=== PATIENT | female | born 1960 | race Caucasian/White ===

== ENCOUNTER 2019-06-22 14:21 | Outpatient (RCR) | payer BC, SELFPAY ==
[2019-06-22 15:30] LABS: Basophils % 0.5 %; Eosinophils # 0.2 10^3/uL (0.0-0.8); Eosinophils % 2.8 %; Hematocrit 42.7 % (37.0-47.0); Hemoglobin 13.3 g/dL (11.5-15.3); Lymphocytes % 16.4 %; Mean Corpuscular HGB Conc 31.1 g/dL (30.0-36.0); Mean Corpuscular Hemoglobin 29.3 pg (28.0-34.0); Mean Corpuscular Volume 94.1 fL (81-99); Mean Platelet Volume 9.7 fL (7.4-10.4); Monocytes # 0.3 10^3/uL (0.2-0.9); Monocytes % 5.7 %; Neutrophils # 4.5 10^3/uL (1.8-7.7); Neutrophils % 74.3 %; Nucleated Red Blood Cells % 0 %; Platelet Count 233 10^3/cmm (130-400); Red Blood Count 4.54 10^6/uL (4.1-5.3); Red Cell Distribution Width 12.5 % (12.1-15.1)
[2019-06-22 17:03] LABS: Erythrocyte Sedimentation Rate 10 mm/hr (0-15)
[2019-06-22 19:21] LABS: Alanine Aminotransferase 17 U/L (0-33); Albumin Level 4.4 g/dL (3.5-5.2); Alkaline Phosphatase 72 IU/L (35-105); Anion Gap 18.2 (5-19); Aspartate Amino Transferase 19 U/L (0-32); Blood Urea Nitrogen 13 mg/dL (8-23); Calcium 9.9 mg/dL (8.5-10.5); Carbon Dioxide 24 mmol/L (22-29); Chloride 103 mmol/L (98-107); Globulin 2.8 g/dL (1.3-4.6); Glomerular Filtration Rate 72.9 mL/min (90-130); Glucose 129 mg/dL (65-115); Lactate Dehydrogenase 211 U/L (135-214); Potassium 4.2 mmol/L (3.5-5.1); Sodium 141 mmol/L (136-145); Total Bilirubin 0.4 mg/dL (0.15-1.2); Total Protein 7.2 g/dL (6.6-8.7)
[2019-06-22 20:26] LABS: C Reactive Protein 1.2 mg/L (0.0-4.9)
[2019-06-28 15:30] LABS: P190 BCR ALB1 Not Detected; P210 BCR ALB1 Not Detected; Prior Results See Report
== END 2019-06-26 23:59 | disposition home or self-care (01) ==
LOC: ONCMED 14:21
PROVIDERS: Family Provider Nurse Practitioner Family; PCP Nurse Practitioner Family; Visit Provider Internal Medicine Medical Oncology
DX: C92.10 Chronic myeloid leukemia, BCR/ABL-positive, not having achieved remission (principal)
CPT/HCPCS: 36415; 80053; 81206; 83615; 85025; 85651; 86140

== ENCOUNTER 2019-06-30 05:55 | Outpatient (RCR) | payer BC, SELFPAY ==
--- NOTE | 2019-07-02 14:52 | ONC FU_ITS ---
Dr. Louis Patient Follow-Up Note Patient: Marielena Tang Unit #: [id number]: 1960 Dicatated By: Elliott Louis M.D.Date of Visit:Jun 30, 2019 Onc Med Follow-up/Prog Note Chief Complaint: Chronic myeloid leukemia. History of Present Illness: This is a 58 year-old woman with [place] chromosome positive chronic myeloid leukemia. The leukemia was initially diagnosed in November of 2009. She had started treatment at that time with imatinib. She was unable to tolerate it at an adequate dosage. She started second line therapy with nilotinib in November of 2010 following a second opinion evaluation at [facility]. She had initially been able to tolerate it at 200 mg twice a day. Her quantitative PCR for BCR/abl has been undetectable as of March 2011. Her nilotinib dosage was subsequently escalated to 300 mg twice daily. During this time her joint pain had worsened significantly, and she also was found to have an elevated sedimentation rate. She was seen by Dr. Escalante in the rheumatology clinic and she was diagnosed with polymyalgia rheumatica. She was treated with low-dose prednisone with significant symptomatic improvement. She has continued a stable dosage of prednisone at 2.5 mg daily, as she was unable to tolerate a trial at [id number] dosing. She was seen for a scheduled follow-up visit on 11/07/2016. At that time she had reported occasional episodes of weak spells . She was otherwise stable clinically, and her PCR was undetectable. On 12/16/2016 she was admitted to the hospital after presenting to the emergency room with stroke-like symptoms. She been having those symptoms off and on for several days. Her brain MRI showed evidence of acute left occipital lobe infarct with additional cortical-based infarcts involving the posterior left frontal lobe and the left parietal lobe. Her echocardiogram was unremarkable. Her carotid Dopplers showed elevated velocity in the external carotid artery on the right side, suggestive of hemodynamically significant stenosis. During her hospitalization she underwent transesophageal echocardiogram, and it also showed no significant abnormal findings. She was discharged home on aspirin and simvastatin. Her nilotinib was discontinued, due to a known association with arterial thrombotic disease. As she had been in sustained remission for more than 5 years, I opted to just monitor her on observation/expectant management. During subsequent follow-up, her quantitative PCR for BCR/ab remained undetectable. She had a subsequent admission to [facility] in April 2017. Her evaluation there showed evidence of subacute infarcts involving the left parietal and occipital lobes with several small areas of more recent ischemic change in the left carroll radiata. There was noted to be diminished or absent flow at the left MCA. It was recommended that she continue treatment with aspirin and Plavix. She continued on observation/expectant management for the CML. As of March 2019 the quantitative PCR for BCR/abl remained undetectable. Her medical illnesses otherwise have been limited to seasonal allergies and some chronic anxiety. She is a nonsmoker. INTERIM HISTORY: She is seen for a scheduled visit. She has been feeling good generally. She has good energy and activity tolerance. ECOG score 0. Her appetite also has been good. She has not had fever or night sweats. She has just occasional hot flashes. She has no shortness of breath, cough, or chest pain. She recurrently has no GI complaints. She reports having old lady bladder with some urgency/incontinence. Her joint pain is adequately managed with low-dose prednisone. She does complain that her Raynaud's symptoms are getting worse. She has no focal neurologic symptoms. Medications: Acetaminophen 2 (325 mg) Tablet Oral q 6 hours PRN, Adult Aspirin EC Low Strength 1 (81 mg) Tablet, enteric coated Oral daily, Atorvastatin Calcium 1 (20 mg) Tablet Oral daily, CeleXA 1 (10 mg) Tablet Oral daily, Claritin 1 (10 mg) Tablet Oral daily, Clopidogrel Bisulfate 1 (75 mg) Tablet Oral daily, [facility] Fish Oil 3 Capsule (of 1000 mg) Oral daily, Potassium Chloride 1 (10 meq) Tablet, controlled release Oral daily, PredniSONE 1 (2.5 mg) Tablet Oral daily, Protonix 1 (40 mg) Tablet, enteric coated Oral daily Allergies: Allopurinol, Cipro, Erythromycin Ethylsuccinate, and Quinolones. Review of Systems: Constitutional - She has had good energy, and she has normal activity. Her appetite is good and her weight is up 8 pounds since her last visit. No fever, chills, hot flashes, or night sweats. ECOG score is 0, ENMT - No sinus congestion/drainage. No mouth sores. No sore throat or difficulty swallowing, Hematologic/Lymphatic - She bruises easily, Respiratory - No shortness of breath. No cough. No pleuritic pain or hemoptysis, Cardiovascular - No angina pain. No palpitations, Gastrointestinal - No nausea or vomiting. No heartburn or acid reflux. No diarrhea or constipation. No blood in the stool or black stools, Genitourinary (F) - No dysuria or hematuria. No urinary frequency. She has urgency. She does not have as much bladder control as she used to, Musculoskeletal - No joint or bone pain, Integumentary - No skin complications, Neurologic - No headache or dizziness. Her Raynaud's disease has gotten worse, Psychiatric - No anxiety or depression. No insomnia. Vital Signs: Performed on Jun 30, 2019 13:44 Height - 62.00 in Weight - 154.4 lbs (HIGH) BSA - 1.71 sq.m BMI - 28.24 Temperature - 98.3 F (LOW) Pulse - 95 /min Respiration - 17 /min BP - 137/71 mm(hg) O2 Sat - 99 % Pain - 0 Physical Examination: Constitutional - She looks good generally, Eyes - Sclerae nonicteric. Conjunctivae clear, ENMT - No lesions noted in the oral cavity, Hematologic/Lymphatic - No cervical, clavicular, or axillary adenopathy, Respiratory - Lungs are clear with good air movement bilaterally, Cardiovascular - Heart rhythm is regular. There is no murmur, gallop, or rub noted, Abdomen - Mildly distended but soft. Liver and spleen are not enlarged. There is no abdominal mass or ascites noted and there is no inguinal adenopathy, Extremities - No edema, Neurologic - No focal neurologic deficits noted. Lab/Imaging: Test performed on Jun 22, 2019 14:44 LDH (Total) 211 U/L Sodium 141 mmol/L Potassium 4.2 mmol/L Chloride 103 mmol/L CO2 24 mmol/L Anion Gap 18.2 BUN 13 mg/dL Creatinine 0.8 mg/dL Cr Clearance (Est) 77.2100 mL/min eGFR 72.9 mL/min Glucose 129 mg/dL Calcium 9.9 mg/dL Protein, Total 7.2 g/dL Albumin 4.4 g/dL Globulin 2.8 g/dL Bilirubin, Total 0.4 mg/dL ALT (SGPT) 17 U/L AST (SGOT) 19 U/L Alkaline Phosphatase 72 IU/L ESR (Sed Rate) 10 mm/hr WBC 6.0 10 3/uL RBC 4.54 10 6/uL HGB 13.3 g/dL HCT 42.7 % MCV 94.1 fL MCH 29.3 pg MCHC 31.1 g/dL RDW 12.5 % Platelet Count 233 10 3/cmm MPV 9.7 fL Neutrophils 4.5 10 3/uL Lymphocytes 1.0 10 3/uL Monocytes 0.3 10 3/uL Eosinophils 0.2 10 3/uL Basophils 0.0 10 3/uL Neutrophil % 74.3 % Lymphocyte % 16.4 % Monocyte % 5.7 % Eosinophil % 2.8 % Basophils % 0.5 % Impression: 1. Patient with [place] chromosome positive chronic myeloid leukemia, initially diagnosed in November 2009. 2. She was initially treated with imatinib, but tolerated poorly. 3. She then had a major molecular response by PCR on treatment with nilotinib. Her BCR/abl by PCR had been undetectable as of March 2011. She had been tolerating treatment well at 300 mg b.i.d. 4. On 12/16/2016 she was admitted to the hospital with stroke-like symptoms. Her brain MRI showed acute left occipital lobe infarct with additional cortical-based infarcts involving the posterior left frontal lobe and the left parietal lobe. These appear to have been thrombotic in nature rather than embolic, as there was no obvious cardiac source identified. Her nilotinib was discontinued. She is now being monitored off TKI therapy. Her other medical illnesses include: 5. Polymyalgia rheumatica, which is being managed adequately with low-dose prednisone. 6. Seasonal allergies. 7. Chronic anxiety. She has been on observation/expectant management for the CML since her hospitalization in November 2016. During subsequent follow-up she had additional stroke symptoms, and her further evaluation in April 2017 showed markedly diminished flow in the left MCA with evidence of subacute infarcts involving the left parietal and occipital lobes and more recent ischemic changes in the left carroll radiata and left anterior temporal convexity. She was then started on treatment with aspirin and Plavix. She had gradual recovery from her stroke symptoms. During her further follow-up her clinical status has otherwise been stable. Her joint pain remains adequately managed with low-dose prednisone, though she does report that her Raynaud's symptoms have been getting worse. Her quantitative PCR for BCR/abl has remained undetectable. Plan: She remains on observation/expectant management for the CML. She continues prednisone 2.5 mg daily. I will recheck her PCR study in 3 months, and I will see her for a followup visit in 6 months. Signed By: Elliott Louis M.D. <<Signature on File>>
== END 2019-07-27 23:59 | disposition home or self-care (01) ==
LOC: ONCMED 05:55
PROVIDERS: Family Provider Nurse Practitioner Family; PCP Nurse Practitioner Family; Visit Provider Internal Medicine Medical Oncology
DX: C92.10 Chronic myeloid leukemia, BCR/ABL-positive, not having achieved remission (principal); Z79.52 Long term (current) use of systemic steroids; I73.00 Raynaud's syndrome without gangrene; Z86.73 Personal history of transient ischemic attack (TIA), and cerebral infarction without residual deficits; Z79.82 Long term (current) use of aspirin; Z79.02 Long term (current) use of antithrombotics/antiplatelets
CPT/HCPCS: G0463

== ENCOUNTER 2019-09-30 13:06 | Outpatient (CLI) | payer BC, SELFPAY ==
[2019-10-07 14:01] LABS: P190 BCR ALB1 Not Detected; P210 BCR ALB1 Not Detected; Prior Results See Report
== END 2019-09-30 13:07 | disposition home or self-care (01) ==
LOC: ONCMED 13:09
PROVIDERS: PCP Nurse Practitioner Family; Visit Provider Internal Medicine Medical Oncology
DX: C92.11 Chronic myeloid leukemia, BCR/ABL-positive, in remission (principal)
CPT/HCPCS: 36415; 81206

== ENCOUNTER 2020-01-05 13:17 | Outpatient (CLI) | payer BC, SELFPAY ==
[2020-01-05 13:46] LABS: Basophils % 0.5 %; Eosinophils # 0.2 10^3/uL (0.0-0.8); Eosinophils % 3.7 %; Hematocrit 42.6 % (37.0-47.0); Hemoglobin 13.1 g/dL (11.5-15.3); Lymphocytes # 1.5 10^3/uL (0.8-4.8); Lymphocytes % 24.9 %; Mean Corpuscular HGB Conc 30.8 g/dL (30.0-36.0); Mean Corpuscular Hemoglobin 28.6 pg (28.0-34.0); Mean Platelet Volume 9.6 fL (7.4-10.4); Monocytes # 0.5 10^3/uL (0.2-0.9); Neutrophils # 3.84 10^3/uL (1.8-7.7); Neutrophils % 62.4 %; Nucleated Red Blood Cells % 0 %; Platelet Count 243 10^3/cmm (130-400); Red Blood Count 4.58 10^6/uL (4.1-5.3); Red Cell Distribution Width 12.9 % (12.1-15.1); White Blood Count 6.2 10^3/uL (4.0-10.0)
[2020-01-05 14:05] LABS: Alanine Aminotransferase 14 U/L (0-33); Albumin Level 4.5 g/dL (3.5-5.2); Alkaline Phosphatase 72 IU/L (35-105); Anion Gap 13.7 (5-19); Aspartate Amino Transferase 18 U/L (0-32); Blood Urea Nitrogen 16 mg/dL (8-23); Calcium 9.3 mg/dL (8.5-10.5); Carbon Dioxide 26 mmol/L (22-29); Chloride 103 mmol/L (98-107); Globulin 2.5 g/dL (1.3-4.6); Glomerular Filtration Rate 72.9 mL/min (90-130); Glucose 102 mg/dL (65-115); Lactate Dehydrogenase 219 U/L (135-214); Osmolality Calculated 285 mOsm/kg (285-295); Potassium 3.7 mmol/L (3.5-5.1); Sodium 139 mmol/L (136-145); Total Bilirubin 0.6 mg/dL (0.15-1.2)
[2020-01-11 13:22] LABS: P190 BCR ALB1 Not Detected; P210 BCR ALB1 Not Detected; Prior Results See Report
== END 2020-01-05 13:18 | disposition home or self-care (01) ==
PROVIDERS: PCP Nurse Practitioner Family; Visit Provider Internal Medicine Medical Oncology
DX: C92.11 Chronic myeloid leukemia, BCR/ABL-positive, in remission (principal)
CPT/HCPCS: 36415; 80053; 81206; 83615; 85025

== ENCOUNTER 2020-01-12 06:03 | Outpatient (CLI) | payer BC, SELFPAY ==
--- NOTE | 2020-01-15 13:56 | ONC FU_ITS ---
Dr. Louis Patient Follow-Up Note Patient: Marielena Tang Unit #: [id number]: 1960 Dicatated By: Elliott Louis M.D.Date of Visit:Jan 12, 2020 Onc Med Follow-up/Prog Note Chief Complaint: Chronic myeloid leukemia. History of Present Illness: This is a 59 year-old woman with [place] chromosome positive chronic myeloid leukemia. The leukemia was initially diagnosed in November of 2009. She had started treatment at that time with imatinib. She was unable to tolerate it at an adequate dosage. She started second line therapy with nilotinib in November of 2010 following a second opinion evaluation at [facility]. She had initially been able to tolerate it at 200 mg twice a day. Her quantitative PCR for BCR/abl has been undetectable as of March 2011. Her nilotinib dosage was subsequently escalated to 300 mg twice daily. During this time her joint pain had worsened significantly, and she also was found to have an elevated sedimentation rate. She was seen by Dr. Escalante in the rheumatology clinic and she was diagnosed with polymyalgia rheumatica. She was treated with low-dose prednisone with significant symptomatic improvement. She has continued a stable dosage of prednisone at 2.5 mg daily, as she was unable to tolerate a trial at [id number] dosing. She was seen for a scheduled follow-up visit on 11/07/2016. At that time she had reported occasional episodes of weak spells . She was otherwise stable clinically, and her PCR was undetectable. On 12/16/2016 she was admitted to the hospital after presenting to the emergency room with stroke-like symptoms. She been having those symptoms off and on for several days. Her brain MRI showed evidence of acute left occipital lobe infarct with additional cortical-based infarcts involving the posterior left frontal lobe and the left parietal lobe. Her echocardiogram was unremarkable. Her carotid Dopplers showed elevated velocity in the external carotid artery on the right side, suggestive of hemodynamically significant stenosis. During her hospitalization she underwent transesophageal echocardiogram, and it also showed no significant abnormal findings. She was discharged home on aspirin and simvastatin. Her nilotinib was discontinued, due to a known association with arterial thrombotic disease. As she had been in sustained remission for more than 5 years, I opted to just monitor her on observation/expectant management. During subsequent follow-up, her quantitative PCR for BCR/ab remained undetectable. She had a subsequent admission to [facility] in April 2017. Her evaluation there showed evidence of subacute infarcts involving the left parietal and occipital lobes with several small areas of more recent ischemic change in the left carroll radiata. There was noted to be diminished or absent flow at the left MCA. It was recommended that she continue treatment with aspirin and Plavix. She continued on observation/expectant management for the CML. As of September 2019 the quantitative PCR for BCR/abl remained undetectable. Her medical illnesses otherwise have been limited to seasonal allergies and some chronic anxiety. She is a nonsmoker. INTERIM HISTORY: She is seen for a scheduled visit. She has been feeling good generally. She has good energy and activity tolerance. Appetite is good. She has no fever or night sweats. She has not been having much trouble with her sinuses. She has no shortness of breath, cough, or chest pain. She has no GI/ complaints other than some mild stress incontinence. Her joint pain is pretty well controlled on 2.5 mg of prednisone daily. She does not complain of headache or dizziness. She says she has less numbness/tingling. Medications: Acetaminophen 2 (325 mg) Tablet Oral q 6 hours PRN, Adult Aspirin EC Low Strength 1 (81 mg) Tablet, enteric coated Oral daily, Atorvastatin Calcium 1 (20 mg) Tablet Oral daily, CeleXA 1 (10 mg) Tablet Oral daily, Claritin 1 (10 mg) Tablet Oral daily, Clopidogrel Bisulfate 1 (75 mg) Tablet Oral daily, [employer] Fish Oil 3 Capsule (of 1000 mg) Oral daily, Potassium Chloride 1 (10 meq) Tablet, controlled release Oral daily, PredniSONE 1 (2.5 mg) Tablet Oral daily, Protonix 1 (40 mg) Tablet, enteric coated Oral daily Allergies: Allopurinol, Cipro, Erythromycin Ethylsuccinate, and Quinolones. Review of Systems: Constitutional - She has good energy and activity tolerance. Appetite is good and weight is stable. No fever, night sweats, or hot flashes. ECOG score is 0, ENMT - Her sinuses have been okay. No mouth sores. No sore throat or difficulty swallowing, Hematologic/Lymphatic - She has some bruising. No other bleeding, Respiratory - No shortness of breath. No cough. No pleuritic pain or hemoptysis, Cardiovascular - No angina pain. No palpitations, Gastrointestinal - No nausea or vomiting. No heartburn or acid reflux. No diarrhea or constipation. No blood in the stool or black stools, Genitourinary (F) - No dysuria or hematuria. No urinary frequency. She has mild stress incontinence, Musculoskeletal - She is not having any significant joint pain taking 2.5 mg of prednisone daily, Integumentary - No skin rash, Neurologic - No headache or dizziness. She has having less numbness/tingling. No other focal neurologic symptoms, Psychiatric - No anxiety or depression. No insomnia. Vital Signs: Performed on Jan 12, 2020 13:30 Height - 62.00 in Weight - 150.4 lbs (LOW) BSA - 1.69 sq.m BMI - 27.51 Temperature - 97.1 F (LOW) Pulse - 66 /min Respiration - 18 /min BP - 116/64 mm(hg) O2 Sat - 99 % Pain - 0 Physical Examination: Constitutional - She looks good generally, Eyes - Sclerae nonicteric. Conjunctivae clear, ENMT - No lesions noted in the oral cavity, Hematologic/Lymphatic - No cervical, clavicular, or axillary adenopathy, Respiratory - Lungs are clear with good air movement bilaterally, Cardiovascular - Heart rhythm is regular. There is no murmur, gallop, or rub noted, Abdomen - Mildly distended but soft. Liver and spleen are not enlarged. There is no abdominal mass or ascites noted and there is no inguinal adenopathy, Extremities - No edema, Neurologic - No focal neurologic deficits noted. Lab/Imaging: Test performed on Jan 05, 2020 13:30 LDH (Total) 219 U/L Sodium 139 mmol/L Potassium 3.7 mmol/L Chloride 103 mmol/L CO2 26 mmol/L Anion Gap 13.7 BUN 16 mg/dL Creatinine 0.8 mg/dL Cr Clearance (Est) 81.6500 mL/min eGFR 72.9 mL/min Glucose 102 mg/dL Calcium 9.3 mg/dL Protein, Total 7.0 g/dL Albumin 4.5 g/dL Globulin 2.5 g/dL Bilirubin, Total 0.6 mg/dL ALT (SGPT) 14 U/L AST (SGOT) 18 U/L Alkaline Phosphatase 72 IU/L WBC 6.2 10 3/uL RBC 4.58 10 6/uL HGB 13.1 g/dL HCT 42.6 % MCV 93.0 fL MCH 28.6 pg MCHC 30.8 g/dL RDW 12.9 % Platelet Count 243 10 3/cmm MPV 9.6 fL Neutrophils 3.84 10 3/uL Lymphocytes 1.5 10 3/uL Monocytes 0.5 10 3/uL Eosinophils 0.2 10 3/uL Basophils 0.0 10 3/uL Neutrophil % 62.4 % Lymphocyte % 24.9 % Monocyte % 8.0 % Eosinophil % 3.7 % Basophils % 0.5 % NRBC % 0 % Impression: 1. Patient with [place] chromosome positive chronic myeloid leukemia, initially diagnosed in November 2009. 2. She was initially treated with imatinib, but tolerated poorly. 3. She then had a major molecular response by PCR on treatment with nilotinib. Her BCR/abl by PCR had been undetectable as of March 2011. She had been tolerating treatment well at 300 mg b.i.d. 4. On 12/16/2016 she was admitted to the hospital with stroke-like symptoms. Her brain MRI showed acute left occipital lobe infarct with additional cortical-based infarcts involving the posterior left frontal lobe and the left parietal lobe. These appear to have been thrombotic in nature rather than embolic, as there was no obvious cardiac source identified. Her nilotinib was discontinued. She is now being monitored off TKI therapy. Her other medical illnesses include: 5. Polymyalgia rheumatica, which is being managed adequately with low-dose prednisone. 6. Seasonal allergies. 7. Chronic anxiety. She has been on observation/expectant management for the CML since her hospitalization in November 2016. During subsequent follow-up she had additional stroke symptoms, and her further evaluation in April 2017 showed markedly diminished flow in the left MCA with evidence of subacute infarcts involving the left parietal and occipital lobes and more recent ischemic changes in the left carroll radiata and left anterior temporal convexity. She was then started on treatment with aspirin and Plavix. She had gradual recovery from her stroke symptoms. During her further follow-up she has been doing well clinically. Her joint pain remains adequately managed with low-dose prednisone. Her quantitative PCR for BCR/abl has remained undetectable. Plan: She remains on observation/expectant management for the CML. She continues prednisone 2.5 mg daily. I will recheck her PCR study in 3 months, and I will see her for a followup visit in 6 months. Signed By: Elliott Louis M.D. <<Signature on File>>
== END 2020-01-12 06:04 | disposition home or self-care (01) ==
LOC: ONCMED 06:04
PROVIDERS: PCP Nurse Practitioner Family; Visit Provider Internal Medicine Medical Oncology
DX: C92.11 Chronic myeloid leukemia, BCR/ABL-positive, in remission (principal); M35.3 Polymyalgia rheumatica; J30.2 Other seasonal allergic rhinitis; F41.9 Anxiety disorder, unspecified; Z86.73 Personal history of transient ischemic attack (TIA), and cerebral infarction without residual deficits; Z79.52 Long term (current) use of systemic steroids; Z79.82 Long term (current) use of aspirin; Z79.02 Long term (current) use of antithrombotics/antiplatelets
CPT/HCPCS: G0463

== ENCOUNTER 2020-04-13 08:48 | Outpatient (CLI) | payer BC, SELFPAY ==
[2020-04-18 14:27] LABS: P190 BCR ALB1 Not Detected; P210 BCR ALB1 Not Detected; Prior Results See Report
== END 2020-04-13 08:49 | disposition home or self-care (01) ==
LOC: ONCMED 08:50
PROVIDERS: PCP Nurse Practitioner Family; Visit Provider Internal Medicine Medical Oncology
DX: C92.11 Chronic myeloid leukemia, BCR/ABL-positive, in remission (principal)
CPT/HCPCS: 81206

== ENCOUNTER 2020-07-05 09:04 | Outpatient (CLI) | payer BC, SELFPAY ==
[2020-07-05 09:55] LABS: Basophils # 0.1 10^3/uL (0.0-0.1); Basophils % 1.2 %; Eosinophils # 0.3 10^3/uL (0.0-0.8); Eosinophils % 4.3 %; Hematocrit 43.4 % (37.0-47.0); Hemoglobin 13.3 g/dL (11.5-15.3); Lymphocytes # 1.7 10^3/uL (0.8-4.8); Lymphocytes % 27.3 %; Mean Corpuscular HGB Conc 30.6 g/dL (30.0-36.0); Mean Corpuscular Hemoglobin 28.5 pg (28.0-34.0); Mean Corpuscular Volume 92.9 fL (81-99); Mean Platelet Volume 9.6 fL (7.4-10.4); Monocytes # 0.6 10^3/uL (0.2-0.9); Monocytes % 9.1 %; Neutrophils # 3.51 10^3/uL (1.8-7.7); Neutrophils % 57.8 %; Nucleated Red Blood Cells % 0 %; Platelet Count 260 10^3/cmm (130-400); Red Blood Count 4.67 10^6/uL (4.1-5.3); Red Cell Distribution Width 12.7 % (12.1-15.1); White Blood Count 6.1 10^3/uL (4.0-10.0)
[2020-07-05 10:16] LABS: Alanine Aminotransferase 12 U/L (0-33); Albumin Level 4.5 g/dL (3.5-5.2); Alkaline Phosphatase 70 IU/L (35-105); Anion Gap 13.2 (5-19); Aspartate Amino Transferase 17 U/L (0-32); Blood Urea Nitrogen 14 mg/dL (8-23); C Reactive Protein 1.9 mg/L (0.0-4.9); Calcium 9.3 mg/dL (8.5-10.5); Carbon Dioxide 28 mmol/L (22-29); Chloride 102 mmol/L (98-107); Globulin 2.6 g/dL (1.3-4.6); Glomerular Filtration Rate 72.7 mL/min (90-130); Glucose 93 mg/dL (65-115); Lactate Dehydrogenase 256 U/L (135-214); Osmolality Calculated 288 mOsm/kg (285-295); Potassium 4.2 mmol/L (3.5-5.1); Sodium 139 mmol/L (136-145); Total Bilirubin 0.5 mg/dL (0.15-1.2); Total Protein 7.1 g/dL (6.6-8.7)
[2020-07-05 10:31] LABS: Erythrocyte Sedimentation Rate 10 mm/hr (0-15)
[2020-07-08 23:07] LABS: P190 BCR ALB1 NOT DETECTED; P210 BCR ALB1 NOT DETECTED; Prior Results NG
== END 2020-07-05 09:05 | disposition home or self-care (01) ==
LOC: ONCMED 09:07
PROVIDERS: PCP Nurse Practitioner Family; Visit Provider Internal Medicine Medical Oncology
DX: C92.11 Chronic myeloid leukemia, BCR/ABL-positive, in remission (principal); M35.3 Polymyalgia rheumatica
CPT/HCPCS: 80053; 81206; 83615; 85025; 85651; 86140

== ENCOUNTER 2020-07-26 06:12 | Outpatient (CLI) | payer BC, SELFPAY ==
--- NOTE | 2020-07-30 07:55 | ONC FU_ITS ---
Dr. Louis Patient Follow-Up Note Patient: Marielena Tang Unit #: [id number]: 1960 Dicatated By: Elliott Louis M.D.Date of Visit:Jul 26, 2020 Onc Med Follow-up/Prog Note Chief Complaint: Chronic myeloid leukemia. History of Present Illness: This is a 60 year-old woman with [place] chromosome positive chronic myeloid leukemia. The leukemia was initially diagnosed in November of 2009. She had started treatment at that time with imatinib. She was unable to tolerate it at an adequate dosage. She started second line therapy with nilotinib in November of 2010 following a second opinion evaluation at [facility] [place]. She had initially been able to tolerate it at 200 mg twice a day. Her quantitative PCR for BCR/abl has been undetectable as of March 2011. Her nilotinib dosage was subsequently escalated to 300 mg twice daily. During this time her joint pain had worsened significantly, and she also was found to have an elevated sedimentation rate. She was seen by Dr. Escalante in the rheumatology clinic and she was diagnosed with polymyalgia rheumatica. She was treated with low-dose prednisone with significant symptomatic improvement. She has continued a stable dosage of prednisone at 2.5 mg daily, as she was unable to tolerate a trial at [id number] dosing. She was seen for a scheduled follow-up visit on 11/07/2016. At that time she had reported occasional episodes of weak spells . She was otherwise stable clinically, and her PCR was undetectable. On 12/16/2016 she was admitted to the hospital after presenting to the emergency room with stroke-like symptoms. She been having those symptoms off and on for several days. Her brain MRI showed evidence of acute left occipital lobe infarct with additional cortical-based infarcts involving the posterior left frontal lobe and the left parietal lobe. Her echocardiogram was unremarkable. Her carotid Dopplers showed elevated velocity in the external carotid artery on the right side, suggestive of hemodynamically significant stenosis. During her hospitalization she underwent transesophageal echocardiogram, and it also showed no significant abnormal findings. She was discharged home on aspirin and simvastatin. Her nilotinib was discontinued, due to a known association with arterial thrombotic disease. As she had been in sustained remission for more than 5 years, I opted to just monitor her on observation/expectant management. During subsequent follow-up, her quantitative PCR for BCR/ab remained undetectable. She had a subsequent admission to [facility] in April 2017. Her evaluation there showed evidence of subacute infarcts involving the left parietal and occipital lobes with several small areas of more recent ischemic change in the left carroll radiata. There was noted to be diminished or absent flow at the left MCA. It was recommended that she continue treatment with aspirin and Plavix. She continued expectant management for the CML. As of March 2020 the quantitative PCR for BCR/abl remained undetectable. Her medical illnesses otherwise have been limited to seasonal allergies and some chronic anxiety. She is a nonsmoker. INTERIM HISTORY: She has been feeling good generally. She still has occasional weak spells, which seem less frequent when she pays more attention to maintaining good hydration. Overall she has good energy and activity tolerance. Her ECOG score is 0. She has good appetite. She has not had fever or night sweating. She has just a few hot flashes. She recently had antibiotic for a sinus infection. She has a little cough at night, attributable to sinus drainage. She has no shortness of breath or chest pain. She has no GI or complaints. She currently is not having any significant joint or bone pain. She does not complain of headache or dizziness. She does have Raynaud's symptoms, which seem to be getting a little worse. She has no focal neurologic symptoms. Medications: Acetaminophen 2 (325 mg) Tablet Oral q 6 hours PRN, Adult Aspirin EC Low Strength 1 (81 mg) Tablet, enteric coated Oral daily, Atorvastatin Calcium 1 (20 mg) Tablet Oral daily, CeleXA 1 (10 mg) Tablet Oral daily, Claritin 1 (10 mg) Tablet Oral daily, Clopidogrel Bisulfate 1 (75 mg) Tablet Oral daily, [employer] Fish Oil 3 Capsule (of 1000 mg) Oral daily, Potassium Chloride 1 (10 meq) Tablet, controlled release Oral daily, PredniSONE 1 (2.5 mg) Tablet Oral daily, Protonix 1 (40 mg) Tablet, enteric coated Oral daily Allergies: Allopurinol, Cipro, Erythromycin Ethylsuccinate, and Quinolones. Vital Signs: Performed on Jul 26, 2020 10:10 Height - 62.00 in Weight - 153.8 lbs (HIGH) BSA - 1.71 sq.m BMI - 28.13 Temperature - 96.7 F (LOW) Pulse - 77 /min Respiration - 18 /min BP - 145/80 mm(hg) (HIGH) O2 Sat - 98 % Pain - 0 Fatigue - 0 Physical Examination: Constitutional - She looks good generally, Eyes - Sclerae nonicteric. Conjunctivae clear, ENMT - No lesions noted in the oral cavity, Hematologic/Lymphatic - No cervical, clavicular, or axillary adenopathy, Respiratory - Lungs are clear with good air movement bilaterally, Cardiovascular - Heart rhythm is regular. There is no murmur, gallop, or rub noted, Abdomen - Mildly distended but soft. Liver and spleen are not enlarged. There is no abdominal mass or ascites noted and there is no inguinal adenopathy, Extremities - No edema, Neurologic - No focal neurologic deficits noted. Lab/Imaging: Test performed on Jul 05, 2020 09:13 LDH (Total) 256 U/L Sodium 139 mmol/L Potassium 4.2 mmol/L Chloride 102 mmol/L CO2 28 mmol/L Anion Gap 13.2 BUN 14 mg/dL Creatinine 0.8 mg/dL Cr Clearance (Est) 78.5300 mL/min eGFR 72.7 mL/min Glucose 93 mg/dL Osmolality - Calculated 288 mOsm/kg Calcium 9.3 mg/dL Protein, Total 7.1 g/dL Albumin 4.5 g/dL Globulin 2.6 g/dL Bilirubin, Total 0.5 mg/dL ALT (SGPT) 12 U/L AST (SGOT) 17 U/L Alkaline Phosphatase 70 IU/L ESR (Sed Rate) 10 mm/hr WBC 6.1 10 3/uL RBC 4.67 10 6/uL HGB 13.3 g/dL HCT 43.4 % MCV 92.9 fL MCH 28.5 pg MCHC 30.6 g/dL RDW 12.7 % Platelet Count 260 10 3/cmm MPV 9.6 fL Neutrophils 3.51 10 3/uL Lymphocytes 1.7 10 3/uL Monocytes 0.6 10 3/uL Eosinophils 0.3 10 3/uL Basophils 0.1 10 3/uL Neutrophil % 57.8 % Lymphocyte % 27.3 % Monocyte % 9.1 % Eosinophil % 4.3 % Basophils % 1.2 % NRBC % 0 % BCR/ABL Source [employer]FORE [employer]OL BCR/ABL Previous Quant NG Problem List: 1. [place] chromosome positive chronic myeloid leukemia, initially diagnosed in November 2009. 2. On 12/16/2016 she was admitted to the hospital with stroke-like symptoms. Her brain MRI showed acute left occipital lobe infarct with additional cortical-based infarcts involving the posterior left frontal lobe and the left parietal lobe. These appear to have been thrombotic in nature rather than embolic, as there was no obvious cardiac source identified. 3. Polymyalgia rheumatica, which is being managed adequately with low-dose prednisone. 4. Seasonal allergies. 5. Chronic anxiety. Problems Addressed with this Encounter and Plan: 1. Patient with [place] chromosome positive chronic myeloid leukemia, initially diagnosed in November 2009. She was initially treated with imatinib, but tolerated poorly. She then had a major molecular response by PCR on treatment with nilotinib. Her quantitative PCR for BCR/abl became undetectable as of March 2011. During followup her BCR/abl by PCR remained undetectable, and she had been tolerating treatment well at 300 mg b.i.d. On 12/16/2016 she was admitted to the hospital with stroke-like symptoms. Her brain MRI showed acute left occipital lobe infarct with additional cortical-based infarcts involving the posterior left frontal lobe and the left parietal lobe. These appeared to have been thrombotic in nature rather than embolic, as there was no obvious cardiac source identified. Her nilotinib was discontinued, and she was then monitored off TKI therapy. She has since then been doing well clinically with no further cerebrovascular symptoms and with no evidence of recurrence/progression of the chronic myeloid leukemia. She remains on observation/expectant management. I will recheck her PCR study in 3 months, and I will see her for a followup visit in 6 months. 2. Polymyalgia rheumatica. It had previously been managed adequately with low-dose prednisone. During follow-up she was able to taper off prednisone with no recurrence of joint pain, but she does have persistent Raynaud's symptoms. Signed By: Elliott Louis M.D. <<Signature on File>>
== END 2020-07-26 06:13 | disposition home or self-care (01) ==
LOC: ONCMED 06:13
PROVIDERS: PCP Nurse Practitioner Family; Visit Provider Internal Medicine Medical Oncology
DX: C92.11 Chronic myeloid leukemia, BCR/ABL-positive, in remission (principal); D45 Polycythemia vera; J30.9 Allergic rhinitis, unspecified; F41.9 Anxiety disorder, unspecified; Z79.52 Long term (current) use of systemic steroids; Z79.899 Other long term (current) drug therapy
CPT/HCPCS: 99214

== ENCOUNTER 2020-10-25 08:41 | Outpatient (CLI) | payer BC, SELFPAY ==
--- NOTE | 2020-10-25 13:34 | ONC FU_ITS ---
Dr. Louis Patient Follow-Up Note Patient: Marielena Tang Unit #: [id number]: 1960 Dicatated By: Elliott Louis M.D.Date of Visit:Oct 25, 2020 Onc Med Follow-up/Prog Note Chief Complaint: Chronic myeloid leukemia. History of Present Illness: This is a 60 year-old woman with [place] chromosome positive chronic myeloid leukemia. The leukemia was initially diagnosed in November of 2009. She had started treatment at that time with imatinib. She was unable to tolerate it at an adequate dosage. She started second line therapy with nilotinib in November of 2010 following a second opinion evaluation at [facility] [place]. She had initially been able to tolerate it at 200 mg twice a day. Her quantitative PCR for BCR/abl has been undetectable as of March 2011. Her nilotinib dosage was subsequently escalated to 300 mg twice daily. During this time her joint pain had worsened significantly, and she also was found to have an elevated sedimentation rate. She was seen by Dr. Escalante in the rheumatology clinic and she was diagnosed with polymyalgia rheumatica. She was treated with low-dose prednisone with significant symptomatic improvement. She has continued a stable dosage of prednisone at 2.5 mg daily, as she was unable to tolerate a trial at [id number] dosing. She was seen for a scheduled follow-up visit on 11/07/2016. At that time she had reported occasional episodes of weak spells . She was otherwise stable clinically, and her PCR was undetectable. On 12/16/2016 she was admitted to the hospital after presenting to the emergency room with stroke-like symptoms. She been having those symptoms off and on for several days. Her brain MRI showed evidence of acute left occipital lobe infarct with additional cortical-based infarcts involving the posterior left frontal lobe and the left parietal lobe. Her echocardiogram was unremarkable. Her carotid Dopplers showed elevated velocity in the external carotid artery on the right side, suggestive of hemodynamically significant stenosis. During her hospitalization she underwent transesophageal echocardiogram, and it also showed no significant abnormal findings. She was discharged home on aspirin and simvastatin. Her nilotinib was discontinued, due to a known association with arterial thrombotic disease. As she had been in sustained remission for more than 5 years, I opted to just monitor her on observation/expectant management. During subsequent follow-up, her quantitative PCR for BCR/ab remained undetectable. She had a subsequent admission to [facility] in April 2017. Her evaluation there showed evidence of subacute infarcts involving the left parietal and occipital lobes with several small areas of more recent ischemic change in the left carroll radiata. There was noted to be diminished or absent flow at the left MCA. It was recommended that she continue treatment with aspirin and Plavix. She continued expectant management for the CML. As of 07/05/2020 the quantitative PCR for BCR/abl remained undetectable. Her medical illnesses otherwise have been limited to seasonal allergies and some chronic anxiety. She is a nonsmoker. INTERIM HISTORY: She has been feeling good generally. She has good energy and activity tolerance. ECOG score is 0. Her appetite is good. Her weight is stable. She has not had fever or night sweats. She has hot flashes a little bit in the mornings. She has not recently been having sinus symptoms she has not had sore mouth or throat. She has no shortness of breath, cough, or chest pain. She has no GI or complaints. Her joint pain has been well controlled on 2.5 mg of prednisone daily. She does not complain of headache or dizziness. She sometimes has numbness in her hands. She has no other focal neurologic symptoms. Medications: Acetaminophen 2 (325 mg) Tablet Oral q 6 hours PRN, Adult Aspirin EC Low Strength 1 (81 mg) Tablet, enteric coated Oral daily, Atorvastatin Calcium 1 (20 mg) Tablet Oral daily, CeleXA 1 (10 mg) Tablet Oral daily, Claritin 1 (10 mg) Tablet Oral daily, Clopidogrel Bisulfate 1 (75 mg) Tablet Oral daily, [facility] Fish Oil 3 Capsule (of 1000 mg) Oral daily, Potassium Chloride 1 (10 meq) Tablet, controlled release Oral daily, PredniSONE 1 (2.5 mg) Tablet Oral daily, Protonix 1 (40 mg) Tablet, enteric coated Oral daily Allergies: Allopurinol, Cipro, Erythromycin Ethylsuccinate, and Quinolones. Vital Signs: Her weight is 151 pounds. Blood pressure 125/74, pulse 70, respirations 18, and temp 97.8 degrees. Oxygen saturation is 99%. Physical Examination: Constitutional - She looks good generally, Eyes - Sclerae nonicteric. Conjunctivae clear, ENMT - No lesions noted in the oral cavity, Hematologic/Lymphatic - No cervical, clavicular, or axillary adenopathy, Respiratory - Lungs are clear with good air movement bilaterally, Cardiovascular - Heart rhythm is regular. There is no murmur, gallop, or rub noted, Abdomen - Mildly distended but soft. Liver and spleen are not enlarged. There is no abdominal mass or ascites noted and there is no inguinal adenopathy, Extremities - No edema, Neurologic - No focal neurologic deficits noted. Lab/Imaging: Test performed on Jul 05, 2020 09:13 LDH (Total) 256 U/L Sodium 139 mmol/L Potassium 4.2 mmol/L Chloride 102 mmol/L CO2 28 mmol/L Anion Gap 13.2 BUN 14 mg/dL Creatinine 0.8 mg/dL Cr Clearance (Est) 78.5300 mL/min eGFR 72.7 mL/min Glucose 93 mg/dL Osmolality - Calculated 288 mOsm/kg Calcium 9.3 mg/dL Protein, Total 7.1 g/dL Albumin 4.5 g/dL Globulin 2.6 g/dL Bilirubin, Total 0.5 mg/dL ALT (SGPT) 12 U/L AST (SGOT) 17 U/L Alkaline Phosphatase 70 IU/L ESR (Sed Rate) 10 mm/hr WBC 6.1 10 3/uL RBC 4.67 10 6/uL HGB 13.3 g/dL HCT 43.4 % MCV 92.9 fL MCH 28.5 pg MCHC 30.6 g/dL RDW 12.7 % Platelet Count 260 10 3/cmm MPV 9.6 fL Neutrophils 3.51 10 3/uL Lymphocytes 1.7 10 3/uL Monocytes 0.6 10 3/uL Eosinophils 0.3 10 3/uL Basophils 0.1 10 3/uL Neutrophil % 57.8 % Lymphocyte % 27.3 % Monocyte % 9.1 % Eosinophil % 4.3 % Basophils % 1.2 % NRBC % 0 % BCR/ABL Source [employer] BCR/ABL Previous Quant NG Problem List: 1. [place] chromosome positive chronic myeloid leukemia, initially diagnosed in November 2009. 2. On 12/16/2016 she was admitted to the hospital with stroke-like symptoms. Her brain MRI showed acute left occipital lobe infarct with additional cortical-based infarcts involving the posterior left frontal lobe and the left parietal lobe. These appear to have been thrombotic in nature rather than embolic, as there was no obvious cardiac source identified. 3. Polymyalgia rheumatica, which is being managed adequately with low-dose prednisone. 4. Seasonal allergies. 5. Chronic anxiety. Problems Addressed with this Encounter and Plan: 1. Patient with [place] chromosome positive chronic myeloid leukemia, initially diagnosed in November 2009. She was initially treated with imatinib, but tolerated poorly. She then had a major molecular response by PCR on treatment with nilotinib. Her quantitative PCR for BCR/abl became undetectable as of March 2011. During followup her BCR/abl by PCR remained undetectable, and she had been tolerating treatment well at 300 mg b.i.d. On 12/16/2016 she was admitted to the hospital with stroke-like symptoms. Her brain MRI showed acute left occipital lobe infarct with additional cortical-based infarcts involving the posterior left frontal lobe and the left parietal lobe. These appeared to have been thrombotic in nature rather than embolic, as there was no obvious cardiac source identified. Her nilotinib was discontinued, and she was then monitored off TKI therapy. She has since then been doing well clinically with no further cerebrovascular symptoms and with no evidence of recurrence/progression of the chronic myeloid leukemia. Her current PCR study is pending. Assuming it remains undetectable, she will continue on expectant management. I will tentatively plan a follow-up visit in 3 months. 2. Polymyalgia rheumatica. Her pain is currently being well controlled on 2.5 mg of prednisone daily. She is going to try cutting back to 2.5 mg every other day. Signed By: Elliott Louis M.D. <<Signature on File>>
[2020-10-28 23:03] LABS: P190 BCR ALB1 NOT DETECTED; P210 BCR ALB1 NOT DETECTED; Prior Results NG; Source V
== END 2020-10-25 08:42 | disposition home or self-care (01) ==
LOC: ONCMED 08:43
PROVIDERS: PCP Nurse Practitioner Family; Visit Provider Internal Medicine Medical Oncology
DX: C92.11 Chronic myeloid leukemia, BCR/ABL-positive, in remission (principal); Z86.73 Personal history of transient ischemic attack (TIA), and cerebral infarction without residual deficits; M35.3 Polymyalgia rheumatica; J30.2 Other seasonal allergic rhinitis; F41.9 Anxiety disorder, unspecified; Z79.899 Other long term (current) drug therapy
CPT/HCPCS: 81206; 99214

== ENCOUNTER 2021-01-18 09:00 | Outpatient (CLI) | payer BC, SELFPAY ==
[2021-01-18 09:59] LABS: Basophils % 0.7 %; Eosinophils # 0.2 10^3/uL (0.0-0.8); Eosinophils % 3.8 %; Hemoglobin 13.2 g/dL (11.5-15.3); Lymphocytes # 1.7 10^3/uL (0.8-4.8); Lymphocytes % 28.4 %; Mean Corpuscular HGB Conc 31.4 g/dL (30.0-36.0); Mean Corpuscular Hemoglobin 28.8 pg (28.0-34.0); Mean Corpuscular Volume 91.5 fl (81-99); Mean Platelet Volume 9.5 fL (7.4-10.4); Monocytes # 0.6 10^3/uL (0.2-0.9); Monocytes % 9.1 %; Neutrophils # 3.51 10^3/uL (1.8-7.7); Neutrophils % 57.8 %; Nucleated Red Blood Cells % 0 %; Platelet Count 241 10^3/cmm (130-400); Red Blood Count 4.59 10^6/uL (4.1-5.3); Red Cell Distribution Width 12.8 % (12.1-15.1); White Blood Count 6.1 10^3/uL (4.0-10.0)
[2021-01-18 10:31] LABS: Alanine Aminotransferase 18 U/L (0-33); Albumin Level 4.4 g/dL (3.5-5.2); Alkaline Phosphatase 77 IU/L (35-105); Anion Gap 16.8 (5-19); Aspartate Amino Transferase 20 U/L (0-32); Blood Urea Nitrogen 11 mg/dL (8-23); Calcium 9.5 mg/dL (8.5-10.5); Carbon Dioxide 25 mmol/L (22-29); Chloride 100 mmol/L (98-107); Globulin 2.6 g/dL (1.3-4.6); Glomerular Filtration Rate 101.3 mL/min (90-130); Glucose 86 mg/dL (65-115); Lactate Dehydrogenase 243 U/L (135-214); Osmolality Calculated 285 mOsm/kg (285-295); Potassium 3.8 mmol/L (3.5-5.1); Sodium 138 mmol/L (136-145); Total Bilirubin 0.5 mg/dL (0.15-1.2)
[2021-01-23 20:57] LABS: P190 BCR ALB1 NOT DETECTED; P210 BCR ALB1 NOT DETECTED; Prior Results NG; Source blood
== END 2021-01-18 09:01 | disposition home or self-care (01) ==
LOC: ONCMED 09:03
PROVIDERS: Internal Medicine Medical Oncology; PCP Nurse Practitioner Family; Visit Provider Nurse Practitioner
DX: C92.11 Chronic myeloid leukemia, BCR/ABL-positive, in remission (principal)
CPT/HCPCS: 36415; 80053; 81206; 83615; 85025

== ENCOUNTER → 2021-01-20 14:47 | Outpatient (BNVA) | payer BC, SELFPAY | PROVIDERS: PCP Nurse Practitioner Family; Visit Provider Nurse Practitioner | DX: R60.0 Localized edema (principal); S52.614A Nondisplaced fracture of right ulna styloid process, initial encounter for closed fracture; S52.501A Unspecified fracture of the lower end of right radius, initial encounter for closed fracture; W19.XXXA Unspecified fall, initial encounter | CPT/HCPCS: 73090; 73110 ==

== ENCOUNTER 2021-01-25 06:51 | Outpatient (CLI) | payer BC, SELFPAY ==
--- NOTE | 2021-01-26 10:44 | ONC FU_ITS ---
Dr. Louis Patient Follow-Up Note Patient: Marielena Tang Unit #: [id number]: 1960 Dicatated By: Elliott Louis M.D.Date of Visit:Jan 25, 2021 Onc Med Follow-up/Prog Note Chief Complaint: Chronic myeloid leukemia. History of Present Illness: This is a 60 year-old woman with [place] chromosome positive chronic myeloid leukemia. The leukemia was initially diagnosed in November of 2009. She had started treatment at that time with imatinib. She was unable to tolerate it at an adequate dosage. She started second line therapy with nilotinib in November of 2010 following a second opinion evaluation at [facility] [place]. She had initially been able to tolerate it at 200 mg twice a day. Her quantitative PCR for BCR/abl has been undetectable as of March 2011. Her nilotinib dosage was subsequently escalated to 300 mg twice daily. During this time her joint pain had worsened significantly, and she also was found to have an elevated sedimentation rate. She was seen by Dr. Escalante in the rheumatology clinic and she was diagnosed with polymyalgia rheumatica. She was treated with low-dose prednisone with significant symptomatic improvement. She has continued a stable dosage of prednisone at 2.5 mg daily, as she was unable to tolerate a trial at [id number] dosing. She was seen for a scheduled follow-up visit on 11/07/2016. At that time she had reported occasional episodes of weak spells . She was otherwise stable clinically, and her PCR was undetectable. On 12/16/2016 she was admitted to the hospital after presenting to the emergency room with stroke-like symptoms. She been having those symptoms off and on for several days. Her brain MRI showed evidence of acute left occipital lobe infarct with additional cortical-based infarcts involving the posterior left frontal lobe and the left parietal lobe. Her echocardiogram was unremarkable. Her carotid Dopplers showed elevated velocity in the external carotid artery on the right side, suggestive of hemodynamically significant stenosis. During her hospitalization she underwent transesophageal echocardiogram, and it also showed no significant abnormal findings. She was discharged home on aspirin and simvastatin. Her nilotinib was discontinued, due to a known association with arterial thrombotic disease. As she had been in sustained remission for more than 5 years, I opted to just monitor her on observation/expectant management. During subsequent follow-up, her quantitative PCR for BCR/ab remained undetectable. She had a subsequent admission to [facility] in April 2017. Her evaluation there showed evidence of subacute infarcts involving the left parietal and occipital lobes with several small areas of more recent ischemic change in the left carroll radiata. There was noted to be diminished or absent flow at the left MCA. It was recommended that she continue treatment with aspirin and Plavix. She continued expectant management for the CML. As of 10/25/2020 the quantitative PCR for BCR/abl remained undetectable. Her medical illnesses otherwise have been limited to seasonal allergies and some chronic anxiety. She is a nonsmoker. INTERIM HISTORY: She has been feeling pretty good generally. Her main complaint is that on Friday she sustained a right distal forearm fracture after falling in a parking lot. The x-ray showed a nondisplaced comminuted fracture at the distal radius and a mildly displaced avulsion fracture of the ulnar styloid process. It is being managed conservatively. Prior to that injury she had pretty normal activity. Her ECOG score is 0. She has good appetite. She does not have fever or night sweats. She has not had sore mouth or throat. She does not complain of shortness of breath, cough, or chest pain. She has no GI or complaints. She has had no other joint or bone pain. She does not complain of headache or dizziness. She has have some numbness in her right hand with the injury. She has no other focal neurologic symptoms. Medications: Acetaminophen 2 (325 mg) Tablet Oral q 6 hours PRN, Adult Aspirin EC Low Strength 1 (81 mg) Tablet, enteric coated Oral daily, Atorvastatin Calcium 1 (20 mg) Tablet Oral daily, CeleXA 1 (10 mg) Tablet Oral daily, Claritin 1 (10 mg) Tablet Oral daily, Clopidogrel Bisulfate 1 (75 mg) Tablet Oral daily, [employer] Fish Oil 3 Capsule (of 1000 mg) Oral daily, Potassium Chloride 1 (10 meq) Tablet, controlled release Oral daily, PredniSONE 1 (2.5 mg) Tablet Oral daily, Protonix 1 (40 mg) Tablet, enteric coated Oral daily Allergies: Allopurinol, Cipro, Erythromycin Ethylsuccinate, and Quinolones. Vital Signs: Performed on Jan 25, 2021 15:15 Height - 62.00 in Weight - 153 lbs (HIGH) BSA - 1.71 sq.m BMI - 27.98 Temperature - 97.6 F (LOW) Pulse - 79 /min Respiration - 18 /min BP - 128/73 mm(hg) O2 Sat - 99 % Pain - 6 Fatigue - 0 Physical Examination: Constitutional - She looks good generally, Eyes - Sclerae nonicteric. Conjunctivae clear, ENMT - No lesions noted in the oral cavity, Hematologic/Lymphatic - No cervical, clavicular, or axillary adenopathy, Respiratory - Lungs are clear with good air movement bilaterally, Cardiovascular - Heart rhythm is regular. There is no murmur, gallop, or rub noted, Abdomen - Mildly distended but soft. Liver and spleen are not enlarged. There is no abdominal mass or ascites noted and there is no inguinal adenopathy, Extremities - No edema. The right arm is immobilized in a sling, Integumentary - There is an abrasion over the right elbow/proximal forearm, Neurologic - No focal neurologic deficits noted. Lab/Imaging: Test performed on Jan 18, 2021 09:20 LDH (Total) 243 U/L Sodium 138 mmol/L Potassium 3.8 mmol/L Chloride 100 mmol/L CO2 25 mmol/L Anion Gap 16.8 BUN 11 mg/dL Creatinine 0.6 mg/dL Cr Clearance (Est) 105.2600 mL/min eGFR 101.3 mL/min Glucose 86 mg/dL Osmolality - Calculated 285 mOsm/kg Calcium 9.5 mg/dL Protein, Total 7.0 g/dL Albumin 4.4 g/dL Globulin 2.6 g/dL Bilirubin, Total 0.5 mg/dL ALT (SGPT) 18 U/L AST (SGOT) 20 U/L Alkaline Phosphatase 77 IU/L WBC 6.1 10 3/uL RBC 4.59 10 6/uL HGB 13.2 g/dL HCT 42.0 % MCV 91.5 fl MCH 28.8 pg MCHC 31.4 g/dL RDW 12.8 % Platelet Count 241 10 3/cmm MPV 9.5 fL Neutrophils 3.51 10 3/uL Lymphocytes 1.7 10 3/uL Monocytes 0.6 10 3/uL Eosinophils 0.2 10 3/uL Basophils 0.0 10 3/uL Neutrophil % 57.8 % Lymphocyte % 28.4 % Monocyte % 9.1 % Eosinophil % 3.8 % Basophils % 0.7 % NRBC % 0 % BCR/ABL Source blood BCR/ABL Previous Quant NG Problem List: 1. [place] chromosome positive chronic myeloid leukemia, initially diagnosed in November 2009. 2. On 12/16/2016 she was admitted to the hospital with stroke-like symptoms. Her brain MRI showed acute left occipital lobe infarct with additional cortical-based infarcts involving the posterior left frontal lobe and the left parietal lobe. These appear to have been thrombotic in nature rather than embolic, as there was no obvious cardiac source identified. 3. Polymyalgia rheumatica, which is being managed adequately with low-dose prednisone. 4. Seasonal allergies. 5. Chronic anxiety. Problems Addressed with this Encounter and Plan: 1. Patient with [place] chromosome positive chronic myeloid leukemia, initially diagnosed in November 2009. She was initially treated with imatinib, but tolerated poorly. She then had a major molecular response by PCR on treatment with nilotinib. Her quantitative PCR for BCR/abl became undetectable as of March 2011. Her PCR had then remained undetectable while continuing treatment with nilotinib at 300 mg b.i.d. On 12/16/2016 she was admitted to the hospital with stroke-like symptoms. Her brain MRI showed acute left occipital lobe infarct with additional cortical-based infarcts involving the posterior left frontal lobe and the left parietal lobe. These appeared to have been thrombotic in nature rather than embolic, as there was no obvious cardiac source identified. Her nilotinib was discontinued, and she was then monitored off TKI therapy. During follow-up she continued to do well clinically with her PCR for BCR/abl remaining undetectable and with no further thromboembolism. She recently sustained a traumatic fracture of the right distal forearm. It is being managed conservatively. She has otherwise been doing very well. Her overall clinical status has been stable and there has been no evidence of recurrence of the CML. She continues expectant management. She will be scheduled for a repeat PCR study in 3 months and for a follow-up visit in 6 months. In the meantime, I have contacted Dr. Diaz and he has indicated that he will see her tomorrow for management of the fracture. 2. Polymyalgia rheumatica. Her pain has been well controlled on a low dosage of prednisone, 2.5 mg daily. Signed By: Elliott Louis M.D. <<Signature on File>>
== END 2021-01-25 06:52 | disposition home or self-care (01) ==
LOC: ONCMED 06:51
PROVIDERS: PCP Nurse Practitioner Family; Visit Provider Internal Medicine Medical Oncology
DX: C92.10 Chronic myeloid leukemia, BCR/ABL-positive, not having achieved remission (principal); M35.3 Polymyalgia rheumatica; F41.8 Other specified anxiety disorders; Z79.899 Other long term (current) drug therapy; Z79.82 Long term (current) use of aspirin; Z79.52 Long term (current) use of systemic steroids
CPT/HCPCS: 99214

== ENCOUNTER → 2021-01-26 08:43 | Outpatient (BNVA) | payer BC, SELFPAY | PROVIDERS: PCP Nurse Practitioner Family; Visit Provider Orthopaedic Surgery | DX: S52.501A Unspecified fracture of the lower end of right radius, initial encounter for closed fracture (principal); X58.XXXA Exposure to other specified factors, initial encounter | CPT/HCPCS: 73110 ==

== ENCOUNTER 2021-01-26 09:47 | Outpatient (CLI) | payer BC, SELFPAY | END 2021-01-26 09:48 | disposition home or self-care (01) | LOC: SPT 09:48 | PROVIDERS: PCP Nurse Practitioner Family; Visit Provider Orthopaedic Surgery | DX: Z46.89 Encounter for fitting and adjustment of other specified devices (principal); S52.531S Colles' fracture of right radius, sequela; X58.XXXD Exposure to other specified factors, subsequent encounter | CPT/HCPCS: 97760; L3982 ==

== ENCOUNTER → 2021-02-20 11:12 | Outpatient (BNVA) | payer BC, SELFPAY | PROVIDERS: PCP Nurse Practitioner Family; Visit Provider Orthopaedic Surgery | DX: S52.531A Colles' fracture of right radius, initial encounter for closed fracture (principal); X58.XXXA Exposure to other specified factors, initial encounter | CPT/HCPCS: 73110 ==

== ENCOUNTER → 2021-03-13 11:39 | Outpatient (BNVA) | payer BC, SELFPAY | PROVIDERS: PCP Nurse Practitioner Family; Visit Provider Orthopaedic Surgery | DX: S52.531A Colles' fracture of right radius, initial encounter for closed fracture (principal); X58.XXXA Exposure to other specified factors, initial encounter | CPT/HCPCS: 73110 ==

== ENCOUNTER 2021-07-10 09:52 | Outpatient (CLI) | payer BC, SELFPAY ==
[2021-07-10 11:13] LABS: Basophils # 0.1 10^3/uL (0.0-0.1); Basophils % 0.8 %; Eosinophils # 0.2 10^3/uL (0.0-0.8); Hematocrit 44.7 % (37.0-47.0); Hemoglobin 13.9 g/dL (11.5-15.3); Lymphocytes # 1.7 10^3/uL (0.8-4.8); Mean Corpuscular HGB Conc 31.1 g/dL (30.0-36.0); Mean Corpuscular Hemoglobin 28.3 pg (28.0-34.0); Mean Corpuscular Volume 90.9 fl (81-99); Mean Platelet Volume 9.6 fL (7.4-10.4); Monocytes # 0.5 10^3/uL (0.2-0.9); Monocytes % 6.6 %; Neutrophils # 4.63 10^3/uL (1.8-7.7); Neutrophils % 65.3 %; Nucleated Red Blood Cells % 0 %; Platelet Count 282 10^3/cmm (130-400); Red Blood Count 4.92 10^6/uL (4.1-5.3); Red Cell Distribution Width 12.9 % (12.1-15.1); White Blood Count 7.1 10^3/uL (4.0-10.0)
[2021-07-10 11:30] LABS: Alanine Aminotransferase 13 U/L (0-33); Albumin Level 4.8 g/dL (3.5-5.2); Alkaline Phosphatase 89 IU/L (35-105); Blood Urea Nitrogen 13 mg/dL (8-23); Calcium 9.7 mg/dL (8.5-10.5); Carbon Dioxide 25 mmol/L (22-29); Chloride 102 mmol/L (98-107); Globulin 2.9 g/dL (1.3-4.6); Glomerular Filtration Rate 124.6 mL/min (90-130); Glucose 100 mg/dL (65-115); Osmolality Calculated 288 mOsm/kg (285-295); Sodium 139 mmol/L (136-145); Total Bilirubin 0.5 mg/dL (0.15-1.2); Total Protein 7.7 g/dL (6.6-8.7)
[2021-07-10 11:52] LABS: Anion Gap 16.1 (5-19); Aspartate Amino Transferase 21 U/L (0-32); Lactate Dehydrogenase 276 U/L (135-214); Potassium 4.1 mmol/L (3.5-5.1)
[2021-07-14 20:18] LABS: P190 BCR ALB1 NOT DETECTED; P210 BCR ALB1 NOT DETECTED; Prior Results NG; Source serum
== END 2021-07-10 09:53 | disposition home or self-care (01) ==
PROVIDERS: PCP Nurse Practitioner Family; Visit Provider Internal Medicine Medical Oncology
DX: C92.10 Chronic myeloid leukemia, BCR/ABL-positive, not having achieved remission (principal)
CPT/HCPCS: 36415; 80053; 81206; 83615; 85025

== ENCOUNTER 2021-07-16 12:50 | Outpatient (CLI) | payer BC, SELFPAY ==
--- NOTE | 2021-07-20 16:57 | ONC FU_ITS ---
Dr. Louis Patient Follow-Up Note Patient: Marielena Tang Unit #: [id number]: 1960 Dicatated By: Elliott Louis M.D.Date of Visit:Jul 16, 2021 Onc Med Follow-up/Prog Note Chief Complaint: Chronic myeloid leukemia. History of Present Illness: This is a 61 year-old woman with [place] chromosome positive chronic myeloid leukemia. The leukemia was initially diagnosed in November of 2009. She had started treatment at that time with imatinib. She was unable to tolerate it at an adequate dosage. She started second line therapy with nilotinib in November of 2010 following a second opinion evaluation at [facility] [place]. She had initially been able to tolerate it at 200 mg twice a day. Her quantitative PCR for BCR/abl has been undetectable as of March 2011. Her nilotinib dosage was subsequently escalated to 300 mg twice daily. During this time her joint pain had worsened significantly, and she also was found to have an elevated sedimentation rate. She was seen by Dr. Escalante in the rheumatology clinic and she was diagnosed with polymyalgia rheumatica. She was treated with low-dose prednisone with significant symptomatic improvement. She has continued a stable dosage of prednisone at 2.5 mg daily, as she was unable to tolerate a trial at [id number] dosing. She was seen for a scheduled follow-up visit on 11/07/2016. At that time she had reported occasional episodes of weak spells . She was otherwise stable clinically, and her PCR was undetectable. On 12/16/2016 she was admitted to the hospital after presenting to the emergency room with stroke-like symptoms. She been having those symptoms off and on for several days. Her brain MRI showed evidence of acute left occipital lobe infarct with additional cortical-based infarcts involving the posterior left frontal lobe and the left parietal lobe. Her echocardiogram was unremarkable. Her carotid Dopplers showed elevated velocity in the external carotid artery on the right side, suggestive of hemodynamically significant stenosis. During her hospitalization she underwent transesophageal echocardiogram, and it also showed no significant abnormal findings. She was discharged home on aspirin and simvastatin. Her nilotinib was discontinued, due to a known association with arterial thrombotic disease. As she had been in sustained remission for more than 5 years, I opted to just monitor her on observation/expectant management. During subsequent follow-up, her quantitative PCR for BCR/ab remained undetectable. She had a subsequent admission to [facility] in April 2017. Her evaluation there showed evidence of subacute infarcts involving the left parietal and occipital lobes with several small areas of more recent ischemic change in the left carroll radiata. There was noted to be diminished or absent flow at the left MCA. It was recommended that she continue treatment with aspirin and Plavix. She continued expectant management for the CML. Her medical illnesses otherwise have been limited to seasonal allergies and some chronic anxiety. She is a nonsmoker. INTERIM HISTORY: In December 2020 she sustained a traumatic fracture to the distal right radius and ulnar styloid process. It was ably managed conservatively. At that point her quantitative PCR remained undetectable. She is seen for a follow-up visit. She has been feeling good generally. Recently she had felt tired for a couple of days, but that seems to have resolved. She is otherwise had good energy, and she has normal activity. ECOG score is 0. Her appetite is good. She has no fever or night sweats. She has not been having sinus drainage and she does not complain of sore mouth or throat. She has not had cough, shortness of breath, or chest pain. She has no GI or complaints. Her joint pain is managed adequately with low-dose prednisone. She has very occasional headache. She occasionally has dizziness. She has numbness in her hands intermittently. She has no other focal neurologic symptoms and no recurrence of any stroke-like symptoms. Medications: Adult Aspirin EC Low Strength 1 (81 mg) Tablet, enteric coated Oral daily, Atorvastatin Calcium 1 (20 mg) Tablet Oral daily, CeleXA 1 (10 mg) Tablet Oral daily, Claritin 1 (10 mg) Tablet Oral daily, Clopidogrel Bisulfate 1 (75 mg) Tablet Oral daily, [employer] Fish Oil 2 Capsule (of 1000 mg) Oral b.i.d., Potassium Chloride 1 (10 meq) Tablet, controlled release Oral daily, PredniSONE 1 (2.5 mg) Tablet Oral daily, Protonix 1 (40 mg) Tablet, enteric coated Oral daily, Vitamin C 2 Tablet Oral daily, Vitamin D Tablet Oral daily, Zinc Tablet Oral daily Allergies: Allopurinol, Cipro, Erythromycin Ethylsuccinate, and Quinolones. Vital Signs: Performed on Jul 16, 2021 13:33 Height - 62.00 in Weight - 152.2 lbs (LOW) BSA - 1.70 sq.m BMI - 27.84 Temperature - 98.0 F (LOW) Pulse - 76 /min Respiration - 18 /min BP - 138/80 mm(hg) O2 Sat - 99 % Pain - 0 Fatigue - 1 Physical Examination: Constitutional - She looks good generally, Eyes - Sclerae nonicteric. Conjunctivae clear, ENMT - No lesions noted in the oral cavity, Hematologic/Lymphatic - No cervical, clavicular, or axillary adenopathy, Respiratory - Lungs are clear with good air movement bilaterally, Cardiovascular - Heart rhythm is regular. There is no murmur, gallop, or rub noted, Abdomen - Mildly distended but soft. Liver and spleen are not enlarged. There is no abdominal mass or ascites noted and there is no inguinal adenopathy, Extremities - No edema, Neurologic - No focal neurologic deficits noted. Lab/Imaging: Test performed on Jul 10, 2021 10:55 LDH (Total) 276 U/L Sodium 139 mmol/L Potassium 4.1 mmol/L Chloride 102 mmol/L CO2 25 mmol/L Anion Gap 16.1 BUN 13 mg/dL Creatinine 0.5 mg/dL Cr Clearance (Est) 125.51 mL/min eGFR 124.6 mL/min Glucose 100 mg/dL Osmolality - Calculated 288 mOsm/kg Calcium 9.7 mg/dL Protein, Total 7.7 g/dL Albumin 4.8 g/dL Globulin 2.9 g/dL Bilirubin, Total 0.5 mg/dL ALT (SGPT) 13 U/L AST (SGOT) 21 U/L Alkaline Phosphatase 89 IU/L WBC 7.1 10 3/uL RBC 4.92 10 6/uL HGB 13.9 g/dL HCT 44.7 % MCV 90.9 fl MCH 28.3 pg MCHC 31.1 g/dL RDW 12.9 % Platelet Count 282 10 3/cmm MPV 9.6 fL Neutrophils 4.63 10 3/uL Lymphocytes 1.7 10 3/uL Monocytes 0.5 10 3/uL Eosinophils 0.2 10 3/uL Basophils 0.1 10 3/uL Neutrophil % 65.3 % Lymphocyte % 24.0 % Monocyte % 6.6 % Eosinophil % 3.0 % Basophils % 0.8 % NRBC % 0 % BCR/ABL Source serum BCR/ABL Previous Quant NG Problem List: 1. [place] chromosome positive chronic myeloid leukemia, initially diagnosed in November 2009. 2. On 12/16/2016 she was admitted to the hospital with stroke-like symptoms. Her brain MRI showed acute left occipital lobe infarct with additional cortical-based infarcts involving the posterior left frontal lobe and the left parietal lobe. These appear to have been thrombotic in nature rather than embolic, as there was no obvious cardiac source identified. 3. Polymyalgia rheumatica, which is being managed adequately with low-dose prednisone. 4. Seasonal allergies. 5. Chronic anxiety. Problems Addressed with this Encounter and Plan: 1. Patient with [place] chromosome positive chronic myeloid leukemia, initially diagnosed in November 2009. She was initially treated with imatinib, but tolerated poorly. She then had a major molecular response by PCR on treatment with nilotinib. Her quantitative PCR for BCR/abl became undetectable as of March 2011. Her PCR had then remained undetectable while continuing treatment with nilotinib at 300 mg b.i.d. On 12/16/2016 she was admitted to the hospital with stroke-like symptoms. Her brain MRI showed acute left occipital lobe infarct with additional cortical-based infarcts involving the posterior left frontal lobe and the left parietal lobe. These appeared to have been thrombotic in nature rather than embolic, as there was no obvious cardiac source identified. Her nilotinib was discontinued, and she was then monitored off TKI therapy. During follow-up she continued to do well clinically with her PCR for BCR/abl remaining undetectable and with no further thromboembolism. At this point she appears stable clinically. Her PCR remains undetectable. She continues on expectant management. I will see her again in 6 months. 2. Polymyalgia rheumatica. Her pain has been well controlled on a low dosage of prednisone, 2.5 mg daily. Due to her long-term steroid therapy, she will be scheduled for a surveillance DEXA scan. Signed By: Elliott Louis M.D. <<Signature on File>>
== END 2021-07-16 12:51 | disposition home or self-care (01) ==
LOC: ONCMED 12:52
PROVIDERS: PCP Nurse Practitioner Family; Visit Provider Internal Medicine Medical Oncology
DX: C91.11 Chronic lymphocytic leukemia of B-cell type in remission (principal); M35.3 Polymyalgia rheumatica; F41.9 Anxiety disorder, unspecified; J30.2 Other seasonal allergic rhinitis; Z79.899 Other long term (current) drug therapy
CPT/HCPCS: 99214

== ENCOUNTER 2021-07-18 10:09 | Outpatient (CLI) | payer BC, SELFPAY ==
--- NOTE | 2021-07-18 10:24 | XR_ITS ---
WS: [id number] SCREENING DEXA SCAN [facility] CLINICAL INFORMATION: LONG-TERM STEROID USE COMPARISON: August 06, 2016 FINDINGS: The L1-L4 bone mineral density measures 1.127 g/cm2. This corresponds to a T score score of -0.4 and Z score of 0.9. Left femoral neck bone mineral density measures 0.909 g/cm2. This corresponds to a T score of -0.8 an d Z score of 0.2. Right femoral neck bone mineral density measures 0.894 g/cm2. This corresponds to a T score -0.9of an d Z score of 0.1. Mean femoral neck bone mineral density measures 0.901 g/cm2. This corresponds to a T score of -0.8 an d Z score of 0.2. XR/XR DEXA axial skeleton* [id number] IMPRESSION: Normal bone mineralization. Patient's FRAX calculated 10 year probability for major osteoporotic fracture i s 27.6 % and osteoporotic hip fracture is 5.2%.
== END 2021-07-18 10:10 | disposition home or self-care (01) ==
LOC: RAD 10:10
PROVIDERS: PCP Nurse Practitioner Family; Visit Provider Internal Medicine Medical Oncology
DX: C92.11 Chronic myeloid leukemia, BCR/ABL-positive, in remission (principal); Z79.52 Long term (current) use of systemic steroids
CPT/HCPCS: 77080

== ENCOUNTER 2021-08-07 11:06 | Outpatient (CLI) | payer BC, SELFPAY ==
--- NOTE | 2021-08-07 11:16 | XR_ITS ---
WS: [id number] LEFT THIRD FINGER. TECHNIQUE: PA, oblique and lateral. HISTORY: Cellulitis. COMPARISON: None available. Calcified mass involving the volar aspect of the terminal tuft third finger. Calcified mass measures 16 x 15 mm. The underlying bone is difficult to visualize but does appear intact. This is a soft tiss ue calcified mass. Mild soft tissue edema. XR/XR finger LT min 2V 24035 IMPRESSION: Soft tissue calcified mass along the volar surface distal third phalanx measure s 16 x 15 mm. These masses can be seen with metabolic disorders and systemic di seases such as CPPD, gout and renal failure. Psoriatic arthritis and connective tissue disorders. Chondroma should also be considered if there is pain.
== END 2021-08-07 11:07 | disposition home or self-care (01) ==
PROVIDERS: PCP Nurse Practitioner Family; Visit Provider Nurse Practitioner Family
DX: L03.012 Cellulitis of left finger (principal)
CPT/HCPCS: 73140

== ENCOUNTER 2022-01-16 10:38 | Oncology outpatient (recurring) (ONCR) | payer BC, SELFPAY ==
[2022-01-16 11:40] LABS: Basophils % 0.6 %; Eosinophils # 0.1 10^3/uL (0.0-0.8); Eosinophils % 2.1 %; Hematocrit 41.7 % (37.0-47.0); Lymphocytes # 1.4 10^3/uL (0.8-4.8); Lymphocytes % 22.1 %; Mean Corpuscular HGB Conc 31.2 g/dL (30.0-36.0); Mean Corpuscular Hemoglobin 28.4 pg (28.0-34.0); Mean Platelet Volume 10.1 fL (7.4-10.4); Monocytes # 0.5 10^3/uL (0.2-0.9); Neutrophils # 4.37 10^3/uL (1.8-7.7); Nucleated Red Blood Cells % 0 %; Platelet Count 236 10^3/cmm (130-400); Red Blood Count 4.58 10^6/uL (4.1-5.3); Red Cell Distribution Width 12.8 % (12.1-15.1); White Blood Count 6.5 10^3/uL (4.0-10.0)
[2022-01-16 12:06] LABS: Alanine Aminotransferase 12 U/L (0-33); Albumin Level 4.5 g/dL (3.5-5.2); Alkaline Phosphatase 72 U/L (35-105); Anion Gap 13.7 (5-19); Aspartate Amino Transferase 16 U/L (0-32); Blood Urea Nitrogen 10 mg/dL (8-23); Calcium 9.2 mg/dL (8.5-10.5); Carbon Dioxide 26 mmol/L (22-29); Chloride 101 mmol/L (98-107); Globulin 2.4 g/dL (1.3-4.6); Glomerular Filtration Rate 84.5 mL/min (90-130); Glucose 92 mg/dL (65-115); Lactate Dehydrogenase 251 U/L (135-214); Osmolality Calculated 283 mOsm/kg (285-295); Potassium 3.7 mmol/L (3.5-5.1); Sodium 137 mmol/L (136-145); Total Bilirubin 0.5 mg/dL (0.15-1.2); Total Protein 6.9 g/dL (6.6-8.7)
[2022-01-21 19:28] LABS: P190 BCR ALB1 NOT DETECTED; P210 BCR ALB1 NOT DETECTED; Prior Results NG; Source blood
== END 2022-01-25 23:59 | disposition home or self-care (01) ==
LOC: ONCMED 10:39
PROVIDERS: PCP Nurse Practitioner Family; Visit Provider Internal Medicine Medical Oncology
DX: C92.11 Chronic myeloid leukemia, BCR/ABL-positive, in remission (principal)
CPT/HCPCS: 80053; 81206; 83615; 85025

== ENCOUNTER 2022-05-08 11:51 | Oncology outpatient (recurring) (ONCR) | payer BC, SELFPAY ==
[2022-05-08 12:34] LABS: Basophils # 0.1 10^3/uL (0.0-0.1); Basophils % 0.8 %; Eosinophils # 0.3 10^3/uL (0.0-0.8); Eosinophils % 4.7 %; Hematocrit 40.8 % (37.0-47.0); Hemoglobin 12.6 g/dL (11.5-15.3); Lymphocytes # 1.7 10^3/uL (0.8-4.8); Lymphocytes % 27.6 %; Mean Corpuscular HGB Conc 30.9 g/dL (30.0-36.0); Mean Corpuscular Hemoglobin 28.1 pg (28.0-34.0); Mean Corpuscular Volume 90.9 fl (81-99); Mean Platelet Volume 9.9 fL (7.4-10.4); Monocytes # 0.5 10^3/uL (0.2-0.9); Monocytes % 7.3 %; Neutrophils # 3.65 10^3/uL (1.8-7.7); Neutrophils % 59.4 %; Nucleated Red Blood Cells % 0 %; Platelet Count 255 10^3/cmm (130-400); Red Blood Count 4.49 10^6/uL (4.1-5.3); Red Cell Distribution Width 12.5 % (12.1-15.1); White Blood Count 6.2 10^3/uL (4.0-10.0)
[2022-05-08 13:03] LABS: Alanine Aminotransferase 16 U/L (0-33); Albumin Level 4.5 g/dL (3.5-5.2); Alkaline Phosphatase 88 U/L (35-105); Anion Gap 14.5 (5-19); Aspartate Amino Transferase 21 U/L (0-32); Blood Urea Nitrogen 12 mg/dL (8-23); Calcium 9.6 mg/dL (8.5-10.5); Carbon Dioxide 27 mmol/L (22-29); Chloride 100 mmol/L (98-107); Globulin 2.3 g/dL (1.3-4.6); Glomerular Filtration Rate 100.6 mL/min (90-130); Glucose 93 mg/dL (65-115); Lactate Dehydrogenase 222 U/L (135-214); Osmolality Calculated 285 mOsm/kg (285-295); Potassium 3.5 mmol/L (3.5-5.1); Sodium 138 mmol/L (136-145); Total Bilirubin 0.6 mg/dL (0.15-1.2); Total Protein 6.8 g/dL (6.6-8.7)
== END 2022-05-28 23:59 | disposition home or self-care (01) ==
PROVIDERS: PCP Nurse Practitioner Family; Visit Provider Internal Medicine Medical Oncology
DX: C92.11 Chronic myeloid leukemia, BCR/ABL-positive, in remission (principal); Z86.73 Personal history of transient ischemic attack (TIA), and cerebral infarction without residual deficits; Z86.711 Personal history of pulmonary embolism; Z79.52 Long term (current) use of systemic steroids; Z79.899 Other long term (current) drug therapy
CPT/HCPCS: 36415; 80053; 81206; 83615; 85025

== ENCOUNTER 2022-05-31 10:27 | Oncology outpatient (recurring) (ONCR) | payer BC, SELFPAY ==
[2022-06-04 16:34] LABS: P190 BCR ALB1 NOT DETECTED; P210 BCR ALB1 NOT DETECTED; Prior Results NG; Source blood
== END 2022-06-25 23:59 | disposition home or self-care (01) ==
LOC: ONCMED 10:28
PROVIDERS: PCP Nurse Practitioner Family; Visit Provider Internal Medicine Medical Oncology
DX: C92.11 Chronic myeloid leukemia, BCR/ABL-positive, in remission (principal); Z86.73 Personal history of transient ischemic attack (TIA), and cerebral infarction without residual deficits; Z86.711 Personal history of pulmonary embolism; Z79.52 Long term (current) use of systemic steroids; Z79.899 Other long term (current) drug therapy
CPT/HCPCS: 36415; 81206; 81207

== ENCOUNTER 2022-11-06 11:56 | Oncology outpatient (recurring) (ONCR) | payer BC, SELFPAY ==
[2022-11-06 12:17] VITALS: BP 141/63; PULSE 61; RESP 18; TEMP 36.3; O2SAT 99
[2022-11-06 12:34] LABS: Basophils # 0.1 10^3/uL (0.0-0.1); Eosinophils # 0.2 10^3/uL (0.0-0.8); Eosinophils % 3.6 %; Hematocrit 40.9 % (37.0-47.0); Hemoglobin 12.8 g/dL (11.5-15.3); Lymphocytes # 1.7 10^3/uL (0.8-4.8); Lymphocytes % 33.7 %; Mean Corpuscular HGB Conc 31.3 g/dL (30.0-36.0); Mean Corpuscular Hemoglobin 28.1 pg (28.0-34.0); Mean Corpuscular Volume 89.9 fl (81-99); Mean Platelet Volume 9.7 fL (7.4-10.4); Monocytes # 0.4 10^3/uL (0.2-0.9); Neutrophils # 2.66 10^3/uL (1.8-7.7); Neutrophils % 53.5 %; Nucleated Red Blood Cells % 0 %; Platelet Count 221 10^3/cmm (130-400); Red Blood Count 4.55 10^6/uL (4.1-5.3); Red Cell Distribution Width 12.7 % (12.1-15.1)
[2022-11-06 12:51] LABS: Alanine Aminotransferase 13 U/L (0-33); Albumin Level 4.7 g/dL (3.5-5.2); Alkaline Phosphatase 72 U/L (35-105); Anion Gap 13.7 (5-19); Aspartate Amino Transferase 16 U/L (0-32); Blood Urea Nitrogen 10 mg/dL (8-23); Calcium 8.8 mg/dL (8.5-10.5); Carbon Dioxide 27 mmol/L (22-29); Chloride 104 mmol/L (98-107); Globulin 1.9 g/dL (1.3-4.6); Glomerular Filtration Rate 100.6 mL/min (90-130); Glucose 92 mg/dL (65-115); Lactate Dehydrogenase 211 U/L (135-214); Osmolality Calculated 291 mOsm/kg (285-295); Potassium 3.7 mmol/L (3.5-5.1); Sodium 141 mmol/L (136-145); Total Bilirubin 0.5 mg/dL (0.15-1.2); Total Protein 6.6 g/dL (6.6-8.7)
[2022-11-11 21:39] LABS: P190 BCR ALB1 NOT DETECTED; P210 BCR ALB1 NOT DETECTED; Prior Results NG; Source Peripheral blood
== END 2022-11-25 23:59 | disposition home or self-care (01) ==
PROVIDERS: PCP Nurse Practitioner Family; Visit Provider Internal Medicine Medical Oncology
DX: C92.11 Chronic myeloid leukemia, BCR/ABL-positive, in remission (principal)
CPT/HCPCS: 36415; 80053; 81206; 81207; 83615; 85025

== ENCOUNTER → 2023-03-22 15:10 | Outpatient (BNVA) | payer BC, SELFPAY | PROVIDERS: PCP Nurse Practitioner Family; Visit Provider Emergency Medicine | DX: M25.571 Pain in right ankle and joints of right foot (principal) | CPT/HCPCS: 73610 ==

== ENCOUNTER 2023-05-05 12:31 | Oncology outpatient (recurring) (ONCR) | payer MEDICARE, SELFPAY ==
[2023-05-05 12:42] VITALS: BP 143/66; PULSE 64; RESP 16; TEMP 36.4
[2023-05-05 13:11] LABS: Basophils % 0.7 %; Eosinophils # 0.3 10^3/uL (0.0-0.8); Hematocrit 37.4 % (36-47); Lymphocytes # 1.7 10^3/uL (0.8-4.8); Lymphocytes % 30.8 %; Mean Corpuscular HGB Conc 32.1 g/dL (30-55); Mean Corpuscular Hemoglobin 28.6 pg (27-33); Mean Corpuscular Volume 89.3 fl (85-98); Mean Platelet Volume 9.9 fL (7.4-10.4); Monocytes # 0.6 10^3/uL (0.2-0.9); Monocytes % 10.3 %; Neutrophils # 2.83 10^3/uL (1.8-7.7); Nucleated Red Blood Cells % 0 %; Platelet Count 236 10^3/cmm (157-399); Red Blood Count 4.19 10^6/uL (3.85-5.65); Red Cell Distribution Width 13.2 % (12.1-15.1); White Blood Count 5.35 10^3/uL (3.29-11.43)
[2023-05-05 13:21] LABS: Alanine Aminotransferase 41 U/L (0-33); Albumin Level 4.5 g/dL (3.5-5.2); Alkaline Phosphatase 89 U/L (35-105); Aspartate Amino Transferase 32 U/L (0-32); Blood Urea Nitrogen 11 mg/dL (8-23); Calcium 9.3 mg/dL (8.5-10.5); Carbon Dioxide 26 mmol/L (22-29); Chloride 102 mmol/L (98-107); Globulin 2.3 g/dL (1.3-4.6); Glomerular Filtration Rate 100.3 mL/min (90-130); Glucose 91 mg/dL (65-115); Osmolality Calculated 285 mOsm/kg (285-295); Sodium 138 mmol/L (136-145); Total Bilirubin 0.4 mg/dL (0.15-1.2); Total Protein 6.8 g/dL (6.6-8.7)
[2023-05-07 23:14] LABS: P190 BCR ALB1 NOT DETECTED; P190 BCR ALB1 Yes Test Yes; P210 BCR ALB1 NOT DETECTED; P210 BCR ALB1 Yes Test Yes; Prior Results BLOOD; Source blood
== END 2023-05-28 23:59 | disposition home or self-care (01) ==
PROVIDERS: Internal Medicine; PCP Nurse Practitioner Family; Visit Provider Internal Medicine Medical Oncology
DX: C92.11 Chronic myeloid leukemia, BCR/ABL-positive, in remission (principal); Z86.73 Personal history of transient ischemic attack (TIA), and cerebral infarction without residual deficits; Z86.711 Personal history of pulmonary embolism; Z79.52 Long term (current) use of systemic steroids; Z79.899 Other long term (current) drug therapy
CPT/HCPCS: 36415; 80053; 81206; 81207; 85025; 99213

== ENCOUNTER 2023-11-24 14:05 | Oncology outpatient (recurring) (ONCR) | payer MEDICARE, SELFPAY ==
[2023-11-17 10:45] LABS: Basophils # 0.1 10^3/uL (0.0-0.1); Eosinophils # 0.2 10^3/uL (0.0-0.8); Eosinophils % 3.4 %; Hematocrit 39.9 % (36-47); Lymphocytes # 1.8 10^3/uL (0.8-4.8); Lymphocytes % 28.5 %; Mean Corpuscular HGB Conc 32.1 g/dL (30-55); Mean Corpuscular Hemoglobin 28.9 pg (27-33); Mean Corpuscular Volume 90.1 fl (85-98); Mean Platelet Volume 9.7 fL (7.4-10.4); Monocytes # 0.5 10^3/uL (0.2-0.9); Monocytes % 8.2 %; Neutrophils # 3.59 10^3/uL (1.8-7.7); Neutrophils % 58.6 %; Nucleated Red Blood Cells % 0 %; Platelet Count 214 10^3/cmm (157-399); Red Blood Count 4.43 10^6/uL (3.85-5.65); Red Cell Distribution Width 12.6 % (12.1-15.1); White Blood Count 6.13 10^3/uL (3.29-11.43)
[2023-11-17 11:13] LABS: Alanine Aminotransferase 27 U/L (0-33); Albumin Level 4.7 g/dL (3.5-5.2); Alkaline Phosphatase 99 U/L (35-105); Aspartate Amino Transferase 25 U/L (0-32); Blood Urea Nitrogen 14 mg/dL (8-23); Calcium 9.1 mg/dL (8.5-10.5); Carbon Dioxide 25 mmol/L (22-29); Chloride 102 mmol/L (98-107); Globulin 2.4 g/dL (1.3-4.6); Glomerular Filtration Rate 100.3 mL/min (90-130); Glucose 82 mg/dL (65-115); Osmolality Calculated 288 mOsm/kg (285-295); Sodium 139 mmol/L (136-145); Total Bilirubin 0.4 mg/dL (0.15-1.2); Total Protein 7.1 g/dL (6.6-8.7)
[2023-11-21 17:04] LABS: P190 BCR ALB1 NOT DETECTED; P190 BCR ALB1 Yes Test Yes; P210 BCR ALB1 NOT DETECTED; P210 BCR ALB1 Yes Test Yes; Prior Results NG; Source blood
== END 2023-11-26 23:59 | disposition home or self-care (01) ==
PROVIDERS: Internal Medicine; PCP Nurse Practitioner Family; Visit Provider Internal Medicine Medical Oncology
DX: C92.11 Chronic myeloid leukemia, BCR/ABL-positive, in remission (principal); Z79.52 Long term (current) use of systemic steroids
CPT/HCPCS: 36415; 80053; 81206; 81207; 85025; 99213

== ENCOUNTER 2024-05-25 13:29 | Oncology outpatient (recurring) (ONCR) | payer MEDICARE, SELFPAY ==
[2024-05-18 15:00] LABS: Basophils # 0.1 10^3/uL (0.0-0.1); Basophils % 1.1 %; Eosinophils # 0.3 10^3/uL (0.0-0.8); Eosinophils % 4.5 %; Lymphocytes # 1.9 10^3/uL (0.8-4.8); Lymphocytes % 34.8 %; Mean Corpuscular HGB Conc 31.4 g/dL (30-55); Mean Corpuscular Hemoglobin 28.4 pg (27-33); Mean Corpuscular Volume 90.3 fl (85-98); Mean Platelet Volume 9.8 fL (7.4-10.4); Monocytes # 0.4 10^3/uL (0.2-0.9); Monocytes % 7.6 %; Neutrophils # 2.87 10^3/uL (1.8-7.7); Neutrophils % 51.8 %; Nucleated Red Blood Cells % 0 %; Platelet Count 241 10^3/cmm (157-399); Red Blood Count 4.65 10^6/uL (3.85-5.65); Red Cell Distribution Width 12.8 % (12.1-15.1); White Blood Count 5.54 10^3/uL (3.29-11.43)
[2024-05-18 15:06] LABS: Alanine Aminotransferase 25 U/L (0-33); Albumin Level 4.8 g/dL (3.5-5.2); Alkaline Phosphatase 96 U/L (35-105); Anion Gap 17.4 (5-19); Aspartate Amino Transferase 25 U/L (0-32); Blood Urea Nitrogen 16 mg/dL (8-23); Calcium 9.8 mg/dL (8.5-10.5); Carbon Dioxide 25 mmol/L (22-29); Chloride 101 mmol/L (98-107); Globulin 2.3 g/dL (1.3-4.6); Glucose 92 mg/dL (65-115); Lactate Dehydrogenase 229 U/L (135-214); Osmolality Calculated 289 mOsm/kg (285-295); Potassium 4.4 mmol/L (3.5-5.1); Sodium 139 mmol/L (136-145); Total Bilirubin 0.4 mg/dL (0.15-1.2); Total Protein 7.1 g/dL (6.6-8.7)
--- NOTE | 2024-05-18 16:18 | PC.NURSE ---
Labs faxed to Dr. Kong Rhematologist in [place] per patient's request and Dr. Kong's order.
[2024-05-21 22:19] LABS: P190 BCR ALB1 NOT DETECTED; P190 BCR ALB1 Yes Test Yes; P210 BCR ALB1 NOT DETECTED; P210 BCR ALB1 Yes Test Yes; Prior Results NG; Source blood
== END 2024-05-28 23:59 | disposition home or self-care (01) ==
PROVIDERS: PCP Nurse Practitioner Family; Visit Provider Nurse Practitioner Family
DX: Z92.21 Personal history of antineoplastic chemotherapy; C92.11 Chronic myeloid leukemia, BCR/ABL-positive, in remission; Z86.711 Personal history of pulmonary embolism; Z79.52 Long term (current) use of systemic steroids; Z79.899 Other long term (current) drug therapy
CPT/HCPCS: 36415; 80053; 81206; 81207; 83615; 85025; 99213

== ENCOUNTER 2024-11-24 12:29 | Oncology outpatient (recurring) (ONCR) | payer MEDICARE, SELFPAY ==
[2024-11-17 13:49] LABS: Hematocrit 39.0 % (36-47); Hemoglobin 12.50 g/dL (11.27-16.99); Mean Corpuscular HGB Conc 32.1 g/dL (30-55); Mean Corpuscular Hemoglobin 28.9 pg (27-33); Mean Corpuscular Volume 90.3 fl (85-98); Nucleated Red Blood Cells % 0 %; Platelet Count 208 10^3/cmm (157-399); Red Blood Count 4.32 10^6/uL (3.85-5.65); White Blood Count 5.32 10^3/uL (3.29-11.43)
[2024-11-17 14:08] LABS: Alanine Aminotransferase 30 U/L (0-33); Albumin Level 4.5 g/dL (3.5-5.2); Alkaline Phosphatase 93 U/L (35-105); Anion Gap 16.2 (5-19); Aspartate Amino Transferase 28 U/L (0-32); Blood Urea Nitrogen 10 mg/dL (8-23); Calcium 8.7 mg/dL (8.5-10.5); Carbon Dioxide 25 mmol/L (22-29); Chloride 103 mmol/L (98-107); Globulin 2.3 g/dL (1.3-4.6); Glucose 97 mg/dL (65-115); Osmolality Calculated 289 mOsm/kg (285-295); Potassium 4.2 mmol/L (3.5-5.1); Sodium 140 mmol/L (136-145); Total Protein 6.8 g/dL (6.6-8.7)
[2024-11-20 20:29] LABS: BCR ABL1 (IS) 0.000 (0.000); BCR ABL1/ALB1 % 0.000 (0.000); P190 BCR ALB1 NOT DETECTED; P190 BCR ALB1 Yes Test Yes; P210 BCR ALB1 NOT DETECTED; P210 BCR ALB1 Yes Test Yes; Source blood
== END 2024-11-25 23:59 | disposition home or self-care (01) ==
PROVIDERS: PCP Nurse Practitioner Family; Visit Provider Nurse Practitioner Family
DX: Z08 Encounter for follow-up examination after completed treatment for malignant neoplasm (principal); Z85.6 Personal history of leukemia
CPT/HCPCS: 36415; 80053; 81206; 81207; 83615; 85025; 99213